=== PATIENT | female | born 1980 | race Two or more races ===

== ENCOUNTER → 2017-08-12 | Outpatient (CLI) | payer OTHER ==
[~2017-08-12] MED LIST: IBUPROFEN800 MG PO; Motrin PO; PRENATAL TABLE1 EAC3 PO
== END | disposition home or self-care (01) ==
LOC: NUC 08:14
DX: R10.13 Epigastric pain (principal); K21.9 Gastro-esophageal reflux disease without esophagitis
CPT/HCPCS: 78264; A9541